=== PATIENT | male | born 1935 ===

== ENCOUNTER 2019-02-27 00:19 | Outpatient (CLI) | payer MEDICARE, BC, SELFPAY ==
--- NOTE | 2019-02-27 11:39 | DI.NM_ITS ---
APPROVED REPORT Exam: Pharmacologic Patient Location: Out-Patient Room/Bed: Stress Nurse: Deirdre Sullivan RN BMI: 30.12 Baseline Rhythm: Atrial Fibrillation Indications: Pre-surgical screening for planned carpal tunnel surgury. Denies chest pains/chest press ure. Medical History Medical History: Atrial Fibrillation, Diabetes, Hyperlipidemia, PVD, HTN Cardiac Medications: Aspirin, Losartan/ Cozaar, Diltiazem, Warfarin, Allergies: No known drug allergies Cardiac Risk Factors: HTN, Hyperlipidemia, DM, FHX of CAD, PVD Previous Cardiac Procedures: Valve Replacement Exercise History: Indeterminate Lung Sounds: Clear to auscultation Heart Sounds: Regular Stress Test Details Test: Pharmacologic stress testing performed using 0.4 mg of regadenoson per 5 mL given IV over 10 s econds. Nuclear Acquisition: Rest Tc-99m/Stress Tc-99m 1 day Rest Isotope: Tc-99m Sestamibi. Dose: 12.1 Date: 02/27/2019 Injection Time: 1020 Stress Isotope: Tc-99m Sestamibi. Dose: 38.5 Date: 02/27/2019 Injection Time: 1155 HR Max Heart Rate (APMHR): 137 bpm Resting HR Supine: 80 bpm Target HR (85% APMHR): 116 bpm Max HR Achieved: 98 bpm % of APMHR: 71 Recovery HR: 90 bpm BP Resting BP Supine: 150/70 mmHg Max BP: 150/70 mmHg Recovery BP: 134/60 mmHg ECG Resting ECG: Atrial Fibrillation ST Change: Normal Stress ECG: Atrial Fibrillation ST Change: No significant ST segment changes Arrhythmia: Atrial fibrillation Recovery ECG: Atrial Fibrillation Recovery ST Change: No significant ST segment changes Clinical Time of Stop for Davidson: 0739 Stress Symptoms: No significant side effects noted from Lexiscan injection Stress ECG Conclusion 1. There is no evidence of ischemia on the ECG portion of this exam. Protocol Used: Regadenoson Stress Test Summary STAGE HR BP Symptoms NOTES Supine 80 150/70 Standing 1 min post lexiscan injection 98 120/60 2 min post lexiscan injection 3 min post lexiscan injection 96 120/62 6 min post lexiscan injection 90 134/60 MPI Conclusion Patient's ejection fraction was 55% during stress. There were no wall motion abnormalities. There is no evidence of ischemia on the imaging portion of this exam. This represents a normal SPECT stress test. Radiologist Interpretation Radiologist agrees with [employer]'s Interpretation. Radiologist Interpretation by: Debbie Ley MD Interpretation Date/Time: 02/28/2019 09:49:31
[2019-02-27] MEDS: Regadenoson 0.4 MG/5 ML SYR IVP (12:21)
== END 2019-02-27 00:39 ==
PROVIDERS: PCP Internal Medicine Interventional Cardiology; Visit Provider Internal Medicine Interventional Cardiology
DX: I48.91 Unspecified atrial fibrillation (principal); E78.5 Hyperlipidemia, unspecified; I10 Essential (primary) hypertension; E11.9 Type 2 diabetes mellitus without complications; Z01.810 Encounter for preprocedural cardiovascular examination; Z82.49 Family history of ischemic heart disease and other diseases of the circulatory system
CPT/HCPCS: 78452; 93017; J2785